=== PATIENT | male | born 1975 | race Two or more races ===

== ENCOUNTER 2019-01-01 10:27 | Inpatient (IN) | payer OTHER ==
[~2019-01-01] VITALS: Ht 175.3 cm; Wt 87.1 kg
[2019-01-01 18:37] VITALS: BP 168/83
[2019-01-01 18:45] VITALS: Ht 175.3 cm; Wt 87.1 kg
[2019-01-01 23:29] VITALS: BP 108/68
[2019-01-02 06:22] LABS: BASOPHIL % 0.1 % (0-2); PLATELET COUNT 174 x10^3mcL (130-400); RED CELL DISTRIBUTION WIDTH 14.4 % (11.5-14.5)
[2019-01-02 06:33] VITALS: BP 118/71
[2019-01-02 06:49] LABS: CALCIUM 7.9 mg/dL (8.5-10.1); CARBON DIOXIDE 25.3 mmol/L (21-32); CHLORIDE SERUM 107 mmol/L (98-107); CREATININE SERUM 1.1 mg/dL (0.7-1.3); GFR1 > 60 mL/min; GLUCOSE SERUM 105 mg/dL (74-106); POTASSIUM SERUM 3.9 mmol/L (3.5-5.1); SODIUM SERUM 142 mmol/L (136-145)
[2019-01-02 08:24] VITALS: BP 133/80
[2019-01-02 16:34] VITALS: BP 151/97
[2019-01-02 20:47] VITALS: BP 133/76
[2019-01-03 05:14] VITALS: BP 128/72
[2019-01-03 06:29] LABS: BASOPHIL % 0.2 % (0-2); PLATELET COUNT 166 x10^3mcL (130-400); RED CELL DISTRIBUTION WIDTH 14.1 % (11.5-14.5)
[2019-01-03 07:04] LABS: ALKALINE PHOSPHATASE 64 U/L (46-116); ALT/SGPT 29 U/L (16-63); AST/SGOT 14 U/L (15-37); BILIRUBIN TOTAL 0.4 mg/dL (0.20-1.00); CALCIUM 8.1 mg/dL (8.5-10.1); CHLORIDE SERUM 107 mmol/L (98-107); GFR1 > 60 mL/min; GLUCOSE SERUM 114 mg/dL (74-106); POTASSIUM SERUM 4.4 mmol/L (3.5-5.1); SODIUM SERUM 143 mmol/L (136-145)
[2019-01-03 08:37] VITALS: BP 140/90
[2019-01-03 09:25] LABS: microscopic required? NO
[2019-01-03 09:47] LABS: UA SPECIFIC GRAVITY >=1.030 (1.005-1.035); urine erythrocyte NEGATIVE (NEGATIVE)
[2019-01-03 18:22] VITALS: BP 140/89
[2019-01-03 20:29] VITALS: BP 129/84
[2019-01-04 05:43] VITALS: BP 118/81
[2019-01-04 06:56] LABS: CALCIUM 8.1 mg/dL (8.5-10.1); CHLORIDE SERUM 106 mmol/L (98-107); CREATININE SERUM 0.9 mg/dL (0.7-1.3); GFR1 > 60 mL/min; GLUCOSE SERUM 104 mg/dL (74-106); POTASSIUM SERUM 4.3 mmol/L (3.5-5.1); SODIUM SERUM 141 mmol/L (136-145)
[2019-01-04 07:00] LABS: BASOPHIL % 0.3 % (0-2); PLATELET COUNT 171 x10^3mcL (130-400); RED CELL DISTRIBUTION WIDTH 14.2 % (11.5-14.5)
[2019-01-04 09:05] VITALS: BP 115/76
[2019-01-04 17:55] VITALS: BP 146/88
[2019-01-04 21:50] VITALS: BP 118/75
[2019-01-05 05:56] VITALS: BP 117/76
[2019-01-05 06:43] LABS: CALCIUM 7.8 mg/dL (8.5-10.1); CARBON DIOXIDE 28.3 mmol/L (21-32); CHLORIDE SERUM 107 mmol/L (98-107); GFR1 > 60 mL/min; GLUCOSE SERUM 120 mg/dL (74-106); SODIUM SERUM 141 mmol/L (136-145)
[2019-01-05 06:45] LABS: BASOPHIL % 0.2 % (0-2); PLATELET COUNT 181 x10^3mcL (130-400); RED CELL DISTRIBUTION WIDTH 14.3 % (11.5-14.5)
[2019-01-05 09:34] VITALS: BP 154/86
[2019-01-05 18:01] VITALS: BP 150/95
[2019-01-05 18:31] VITALS: BP 150/89
[2019-01-05 20:45] VITALS: BP 151/91
[2019-01-06 04:32] VITALS: BP 139/80
[2019-01-06 06:09] LABS: BASOPHIL % 0.2 % (0-2); PLATELET COUNT 190 x10^3mcL (130-400); RED CELL DISTRIBUTION WIDTH 13.9 % (11.5-14.5)
[2019-01-06 06:33] LABS: CALCIUM 8.6 mg/dL (8.5-10.1); CARBON DIOXIDE 30.3 mmol/L (21-32); CHLORIDE SERUM 106 mmol/L (98-107); GFR1 > 60 mL/min; GLUCOSE SERUM 103 mg/dL (74-106); POTASSIUM SERUM 4.6 mmol/L (3.5-5.1); SODIUM SERUM 141 mmol/L (136-145)
[2019-01-06 08:12] VITALS: BP 128/71
[2019-01-06 16:19] VITALS: BP 118/72
[2019-01-06 22:00] VITALS: BP 124/73
[2019-01-07 05:44] VITALS: BP 133/82
[2019-01-07 06:25] LABS: BASOPHIL % 0.2 % (0-2); PLATELET COUNT 202 x10^3mcL (130-400); RED CELL DISTRIBUTION WIDTH 14.3 % (11.5-14.5)
[2019-01-07 06:39] LABS: CALCIUM 8.1 mg/dL (8.5-10.1); CARBON DIOXIDE 26.8 mmol/L (21-32); CHLORIDE SERUM 106 mmol/L (98-107); GFR1 > 60 mL/min; GLUCOSE SERUM 103 mg/dL (74-106); POTASSIUM SERUM 4.2 mmol/L (3.5-5.1); SODIUM SERUM 141 mmol/L (136-145)
[2019-01-07 09:23] VITALS: BP 131/85
[2019-01-07 16:40] VITALS: BP 146/91
[2019-01-07 20:38] VITALS: BP 131/83
[2019-01-08 04:26] VITALS: BP 134/88
[2019-01-08 06:15] LABS: BASOPHIL % 0.3 % (0-2); PLATELET COUNT 214 x10^3mcL (130-400); RED CELL DISTRIBUTION WIDTH 14.2 % (11.5-14.5)
[2019-01-08 06:22] LABS: CALCIUM 8.7 mg/dL (8.5-10.1); CARBON DIOXIDE 29.8 mmol/L (21-32); CHLORIDE SERUM 105 mmol/L (98-107); CREATININE SERUM 0.9 mg/dL (0.7-1.3); GFR1 > 60 mL/min; GLUCOSE SERUM 101 mg/dL (74-106); POTASSIUM SERUM 4.8 mmol/L (3.5-5.1); SODIUM SERUM 141 mmol/L (136-145)
[2019-01-08 08:29] VITALS: BP 114/70
[2019-01-08 16:42] VITALS: BP 128/76
[2019-01-08 21:11] VITALS: BP 147/95
[2019-01-09 05:04] VITALS: BP 102/70
[2019-01-09 07:08] LABS: CALCIUM 8.4 mg/dL (8.5-10.1); CARBON DIOXIDE 28.1 mmol/L (21-32); CHLORIDE SERUM 105 mmol/L (98-107); CREATININE SERUM 0.9 mg/dL (0.7-1.3); GFR1 > 60 mL/min; GLUCOSE SERUM 91 mg/dL (74-106); POTASSIUM SERUM 4.4 mmol/L (3.5-5.1); SODIUM SERUM 140 mmol/L (136-145)
[2019-01-09 07:13] LABS: BASOPHIL % 0.4 % (0-2); PLATELET COUNT 232 x10^3mcL (130-400)
[2019-01-09 09:01] VITALS: BP 134/85
[2019-01-09 17:38] VITALS: BP 125/67
[2019-01-09 21:01] VITALS: BP 125/81
[2019-01-10 04:53] VITALS: BP 133/87
[2019-01-10 06:52] LABS: CALCIUM 8.1 mg/dL (8.5-10.1); CARBON DIOXIDE 27.3 mmol/L (21-32); CHLORIDE SERUM 105 mmol/L (98-107); CREATININE SERUM 0.9 mg/dL (0.7-1.3); GFR1 > 60 mL/min; GLUCOSE SERUM 113 mg/dL (74-106); POTASSIUM SERUM 4.2 mmol/L (3.5-5.1); SODIUM SERUM 139 mmol/L (136-145)
[2019-01-10 07:10] LABS: BASOPHIL % 0.4 % (0-2); PLATELET COUNT 245 x10^3mcL (130-400); RED CELL DISTRIBUTION WIDTH 13.9 % (11.5-14.5)
[2019-01-10 09:01] VITALS: BP 134/81
[2019-01-10 17:01] VITALS: BP 140/84
[2019-01-10 20:31] VITALS: BP 135/68
[2019-01-11 04:33] VITALS: BP 120/64
[2019-01-11 08:23] VITALS: BP 126/69
[2019-01-11 16:43] VITALS: BP 120/80
[2019-01-11 19:23] VITALS: BP 124/78
[2019-01-12 03:54] VITALS: BP 127/85
[2019-01-12 08:47] VITALS: BP 120/70
[2019-01-12 17:20] VITALS: BP 126/77
[2019-01-12 20:17] VITALS: BP 131/85
[2019-01-13 05:35] VITALS: BP 154/84
[2019-01-13 06:01] LABS: BASOPHIL % 0.4 % (0-2); PLATELET COUNT 252 x10^3mcL (130-400); RED CELL DISTRIBUTION WIDTH 13.8 % (11.5-14.5)
[2019-01-13 06:09] LABS: CALCIUM 8.2 mg/dL (8.5-10.1); CARBON DIOXIDE 30.4 mmol/L (21-32); CHLORIDE SERUM 107 mmol/L (98-107); GFR1 > 60 mL/min; GLUCOSE SERUM 102 mg/dL (74-106); POTASSIUM SERUM 4.4 mmol/L (3.5-5.1); SODIUM SERUM 137 mmol/L (136-145)
[2019-01-13 09:28] VITALS: BP 130/88
[2019-01-13] MEDS ORDERED: PERCOCET1 TAB PO (09:56)
[2019-01-13] MEDS ORDERED: BACLOFEN10 MG PO (09:56)
[2019-01-13 15:08] VITALS: BP 130/88
== END 2019-01-13 20:40 | disposition home or self-care (01) | DRG 494 ==
LOC: ED 10:27 → MU 14:53
PROVIDERS: Family Medicine; Student in an Organized Health Care Education/Training Program; ADMIT Internal Medicine
PROC: 0QSJ04Z Reposition Right Fibula with Internal Fixation Device, Open Approach (ICD-10-PCS; 2019-01-04)
PROC: 0QSG04Z Reposition Right Tibia with Internal Fixation Device, Open Approach (ICD-10-PCS; principal; 2019-01-06 12:00)
DX: S82.841A Displaced bimalleolar fracture of right lower leg, initial encounter for closed fracture (principal); F41.9 Anxiety disorder, unspecified; F17.210 Nicotine dependence, cigarettes, uncomplicated; Z68.28 Body mass index [BMI] 28.0-28.9, adult; V83.7XXA Person on outside of special industrial vehicle injured in nontraffic accident, initial encounter; Y92.59 Other trade areas as the place of occurrence of the external cause
CPT/HCPCS: 94150; 97112-GP; 97116-GP; 97530-GP; C1713; G0378; J0690; J1170; J1650; J1885; J2001; J2175; J2250; J2270; J2405; J2704; J3010; J3490; J7030; J7050; J7120; Q0092; Q0163